=== PATIENT | male | born 1970 | race Caucasian/White ===

== ENCOUNTER 2017-09-10 10:44 | Outpatient (CLI) | payer OTHER ==
--- NOTE | 2017-09-10 12:39 | RAD ---
LEFT KNEE THREE VIEWS: HISTORY: Injury to knee. FINDINGS: There is a bipartite present. There are no signs of fracture or joint effusion. Some minimal arthri tic changes of the knee noted. IMPRESSION: No evidence of fracture. POS: [facility]
--- NOTE | 2017-09-10 12:45 | RAD ---
LEFT ANKLE THREE VIEWS: HISTORY: Injury with trauma. FINDINGS: Calcaneal spurs are present. 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 There are no signs of fracture or dislocation. IMPRESSION: No evidence of fracture. POS: [facility]
== END 2017-09-10 10:45 | disposition home or self-care (01) ==
LOC: MADRAD 10:44
PROVIDERS: ATTEND Orthopaedic Surgery
DX: M19.90 Unspecified osteoarthritis, unspecified site (principal)